=== PATIENT | male | born 1980 | race Caucasian/White ===

== ENCOUNTER 2019-12-16 03:48 | Emergency (ER) | payer OTHER ==
--- NOTE | 2019-12-16 03:55 | ED Physician Documentation ---
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 He denies any severe pain he denies abdominal pain denies nausea vomiting the patient reports that he is concerned that he could possibly have compartment syndrome because proximately 8 years ago he had an injury to his left calf area and he ended up with compartment syndrome and ultimately with a fasciotomy he denies severe pain but wants to be evaluated. He denies any testicular pain or dysuria or hematuria denies any history of hernias.The patient has follow-up today with medical at [facility] would be.) Review of Systems Constitutional: reports: Reviewed and negative Eyes: reports: Reviewed and negative Ears: reports: Reviewed and negative Nose: reports: Reviewed and negative Throat: reports: Reviewed and negative Cardiac: reports: Reviewed and negative Respiratory: reports: Reviewed and negative GI: reports: Reviewed and negative : reports: Reviewed and negative Skin: reports: Other (Paresthesias to left groin and left thigh) Musculoskeletal: reports: Reviewed and negative Neurologic: reports: Other (Paresthesias to left groin and left thigh) Psychiatric: reports: Reviewed and negative Endocrine: reports: Reviewed and negative Immunocompromised: reports: Reviewed and negative PD PAST MEDICAL HISTORY - Allergies Allergies/Adverse Reactions: Allergies Allergy/AdvReac Type Severity Reaction Status Date / Time sulfamethoxazole AdvReac Unknown Verified 12/16/19 04:03 [From ] trimethoprim [From ] AdvReac Unknown Verified 12/16/19 04:03 PD ED PE NORMAL - Vitals Vital signs reviewed: Yes - General General: Alert and oriented X 3, No acute distress, Well developed/nourished - HEENT HEENT: Atraumatic, PERRL, Moist mucous membranes, Pharynx benign - Neck Neck: Supple, no meningeal sign, No JVD - Cardiac Cardiac: RRR, No murmur, Strong equal pulses - Respiratory Respiratory: No respiratory distress, Clear bilaterally - Abdomen Abdomen: Normal bowel sounds, Soft, Non tender, Non distended, No organomegaly - Male Male : Other (No appreciable inguinal hernias on exam testicles are descended bilaterally penis is circumcised urethra is patent with no blood at the urethral meatus there is some decreased sensation in the left groin and abnormal sensation over the left proximal thigh.) - Rectal Rectal: Deferred - Back Back: No CVA TTP, No spinal TTP - Derm Derm: Normal color, Warm and dry, No rash - Extremities Extremities: No deformity, No tenderness to palpate, Normal ROM s pain, No edema, No calf tenderness / cord - Neuro Neuro: Alert and oriented X 3, acute care registered nurse 2-12 intact, No motor deficit, Normal speech, Other (Decreased sensation over the left groin region and left proximal lateral thigh.Strength is 5 out of 5 in bilateral upper and lower extremities he has a normal gait and can stand on his heels and his toes. Reflexes are 2+ and symmetric in bilateral patellar and Achilles.) - Psych Psych: Normal mood, Normal affect Results - Vitals Vitals: Vital Signs - 24 hr 12/16/19 12/16/19 12/16/19 03:57 04:10 04:22 Temperature 37.0 C Heart Rate 71 Respiratory 17 17 16 Rate Blood Pressure 151/96 H O2 Saturation 98 Oxygen O2 Source Room air - Labs Labs: Laboratory Tests 12/16/19 03:55 Urine Color YELLOW Urine Clarity CLEAR Urine pH 6.5 Ur Specific [place] 1.010 Urine Protein NEGATIVE Urine Glucose (UA) NEGATIVE Urine Ketones NEGATIVE Urine Occult Blood NEGATIVE Urine Nitrite NEGATIVE Urine Bilirubin NEGATIVE Urine Urobilinogen 0.2 (NORMAL) Ur Leukocyte Esterase NEGATIVE Ur Microscopic Review NOT INDICATED Urine Culture Comments NOT INDICATED PD MEDICAL DECISION MAKING - ED course Complexity details: considered differential (History and exam are consistent with meralgia paresthetica) Departure - Departure Disposition: 01 Home, Self Care Clinical Impression: Meralgia paresthetica of left side Condition: Stable Instructions: ED Paraesthesias Follow-Up: your, doctor [Other] - 12/16/19 Comments: take ibuprofen as needed. where loose fitting clothes. follow up with medical today. Discharge Date/Time: 12/16/19 04:33
[2019-12-16 04:02] VITALS: BP 151/96
[2019-12-16 04:13] LABS: BILIRUBIN,URINE NEGATIVE (NEGATIVE); CLARITY,URINE CLEAR (CLEAR); GLUCOSE, URINE (UA) NEGATIVE (NEGATIVE); KETONES,URINE (UA) NEGATIVE (NEGATIVE); LEUKOCYTE ESTERASE, URINE NEGATIVE (NEGATIVE); NITRITE,URINE NEGATIVE (NEGATIVE); OCCULT BLOOD,URINE NEGATIVE (NEGATIVE); PH,URINE 6.5 PH (5.0-7.5); PROTEIN,URINE NEGATIVE (NEGATIVE); UROBILINOGEN,URINE 0.2 (NORMAL) E.U./dL (NORMAL)
== END 2019-12-16 04:33 | disposition home or self-care (01) ==
LOC: ED 03:48
DX: G57.12 Meralgia paresthetica, left lower limb (principal)
CPT/HCPCS: 81001; 81003; 87086; 99283

== ENCOUNTER 2020-10-23 06:25 | Day surgery (SDC) | payer OTHER ==
[2020-10-23] MEDS ORDERED: LACTATED RINGERS 1,000 ML IV ONE ×2 (06:26→08:47)
[2020-10-23] MEDS ORDERED: ONDANSETRON 4 MG/2 ML VIAL ONE (07:03)
[2020-10-23] MEDS ORDERED: KETOROLAC 30 MG/ML VIAL ONE (07:03)
[2020-10-23] MEDS ORDERED: DEXAMETHASONE 4 MG/ML VIAL ONE (07:03)
[2020-10-23] MEDS ORDERED: ROPIVACAINE 0.5% PF 20 ML AMPULE ONE (07:03)
[2020-10-23] MEDS ORDERED: PROPOFOL 200 MG/20 ML VIAL IVP ONE (07:03)
[2020-10-23] MEDS ORDERED: LIDOCAINE-MPF 2% 5 ML VIAL ONE (07:03)
[2020-10-23] MEDS ORDERED: BUPIVACAINE 0.25% PF 10 ML VIAL ONE ×2 (07:21→07:26)
[2020-10-23] MEDS ORDERED: EPINEPHrine 1 MG/ML AMP ONE (07:21)
[2020-10-23] MEDS ORDERED: ceFAZolin 2 GM/50 ML 2 GM/50 ML BAG IV ONE (07:29)
[2020-10-23] MEDS ORDERED: fentaNYL 100 MCG/2 ML VIAL ONE (07:43)
[2020-10-23] MEDS ORDERED: MIDAZOLAM 2 MG/2 ML VIAL ONE (07:43)
[2020-10-23] MEDS ORDERED: fentaNYL 100 MCG/2 ML VIAL IVP PRN (07:56)
[2020-10-23] MEDS ORDERED: ePHEDrine 50 MG/ML VIAL IVP PRN (07:56)
[2020-10-23] MEDS ORDERED: METOCLOPRAMIDE 10 MG/2 ML VIAL IVP PRN (07:56)
[2020-10-23] MEDS ORDERED: ATROPINE ABBOJECT 1 MG/10 ML SYRINGE IVP PRN (07:56)
[2020-10-23] MEDS ORDERED: ONDANSETRON 4 MG/2 ML VIAL IVP PRN ×2 (07:56→08:44)
[2020-10-23] MEDS ORDERED: NALOXONE 0.4 MG/ML VIAL IVP PRN (07:56)
[2020-10-23] MEDS ORDERED: HYDROmorphone 0.5 MG/0.5 ML SYRINGE IVP PRN (07:56)
[2020-10-23] MEDS ORDERED: MORPHINE 2 MG/ML CARPUJECT IVP PRN (07:56)
--- NOTE | 2020-10-23 07:56 | ANESTHESIA ---
Pre-Anesthesia VS, & Labs - Diagnosis Left Knee Pain - Procedure Left Knee Diagnostic Scope Vital Signs: Temp Pulse Resp BP Pulse Ox 36 C L 66 12 142/99 H 99 10/23/20 06:27 10/23/20 06:27 10/23/20 06:27 10/23/20 06:27 10/23/20 06:27 Height: 6 ft 1 in Weight (kg): 113.4 kg Body Mass Index: 33.0 BMI Classification: Obese - NPO >8 hours Home Medications and Allergies Home Medications: Ambulatory Orders Levothyroxine Sodium [Synthroid] 200 mcg PO 10/18/20 Loratadine [Claritin] 10 mg PO DAILY 10/18/20 Montelukast [Singulair] 10 mg PO QPM 10/18/20 Naproxen [Naprosyn] 250 mg PO Q8H 10/18/20 Levothyroxine Sodium [Synthroid] 200 mcg PO 10/18/20 Loratadine [Claritin] 10 mg PO DAILY 10/18/20 Montelukast [Singulair] 10 mg PO QPM 10/18/20 Naproxen [Naprosyn] 250 mg PO Q8H 10/18/20 Allergies/Adverse Reactions: Allergies Allergy/AdvReac Type Severity Reaction Status Date / Time sulfamethoxazole AdvReac Unknown Verified 10/18/20 13:25 [From ] trimethoprim [From ] AdvReac Unknown Verified 10/18/20 13:25 Anes History & Medical History - Anesthetic History Anesthesia Complications: reports: No previous complications Family history of Anesthesia Complications: Denies Family history of Malignant Hyperthermia: Denies - Medical History Cardiovascular: reports: None Pulmonary: reports: Sleep apnea, CPAP use Gastrointestinal: reports: None Urinary: reports: None Neuro: reports: None Musculoskeletal: reports: Other Endocrine/Autoimmune: reports: HyPOthyroidism Blood Disorders: reports: None Skin: reports: None Smoking Status: Current every day smoker Psychosocial: denies: No issues indicated History of Cancer?: No - Surgical History Orthopedic: Arthroscopic surgery, Other Exam General: Alert Dental: WNL Mouth Openin Fingerbreadth Neck Mobility: Normal Mallampati classification: II Thyromental Distance: less than 4 cm Respiratory: Lungs clear, Normal breath sounds, No respiratory distress, No accessory muscle use Cardiovascular: Regular rate, Normal S1, Normal S2, No murmurs Mental/Cognitive Status: Alert/Oriented X3, Normal for patient Cognitive Status: Within normal limits Plan Anesthesia Type: General Consent for Procedure(s) Verified and Reviewed: Yes Code Status: Attempt Resuscitation ASA classification: 2-Mild systemic disease Is this case an emergency?: No
[2020-10-23] MEDS ORDERED: LACTATED RINGERS 1,000 ML IV SCH (08:00)
[2020-10-23] MEDS ORDERED: EPINEPHrine 1 MG/ML AMP IR ONE (08:04)
[2020-10-23] MEDS ORDERED: BUPIVACAINE 0.25% PF 10 ML VIAL SUBQ ONE ×2 (08:05)
[2020-10-23] MEDS ORDERED: oxyCODONE 5 MG TABLET PO PRN (08:44)
--- NOTE | 2020-10-23 08:55 | OPERATIVE REPORT ---
Operative Report - Other Other Information/Narrative: Date of Surgery: 23 October 2020 Pre-Op Diagnosis: Left knee chondrocalcinosis with cartilage lesions and meniscus tears Procedure: Left knee scope medial meniscus debridement, medial femoral condyle chondroplasty, medial tibial plateau chondroplasty, lateral tibial plateau chondroplasty, lateral meniscus debridement, trochlear chondroplasty Postop Diagnosis: Same as above Primary Surgeon: Alexis Avila Secondary Surgeon: None Complications: None Tourniquet Time: 32 minutes EBL: 5 cc Indication For Surgery: 40-year-old male with 18 months of left knee pain and imaging concerning for meniscus tears versus chondrocalcinosis. Conservative measures did not resolve his symptoms sufficiently. The risks, benefits, and alternatives were discussed. Risks include pain, bleeding, infection, damage to nearby structures and cartilage, lack of symptom relief, need for further surgery, DVT, PE, stroke, and . Written consent was obtained. Examination Under Anesthesia: ROM from 5 to 125 degrees. Stable dial at 30 & 90 degrees. Stable to varus and valgus stressing at 0 & 30 degrees. Stable Corine. Stable Pivot shift. No mechanical sensation Arthroscopic Findings: Loose bodies -small calcific loose bodies were appreciated throughout the knee and they were removed with a shaver Synovium -inflamed and excessive, this was debrided Patella cartilage -partial-thickness cartilage loss most prominent on the medial side and the proximal pole, edges were stable and debridement was not needed Trochlear cartilage -there is a large grade 2/3 lesion centrally with some loose edges which were debrided Medial femoral condyle cartilage -there is a linear area of calcific depositing that was excised and this was associated with a partial-thickness fissure Medial tibial plateau cartilage -there is diffuse grade 2 changes with calcium deposition which were debrided Medial meniscus -small bits of calcium deposition were seen superficially and there was a radial tear that measured 2 mm. The radial tear was debrided and the calcium was excised. The root was intact Anterior cruciate ligament -normal Posterior cruciate ligament -normal Lateral femoral condyle cartilage -normal Lateral tibial plateau cartilage -grade 2 changes throughout with softening and calcium deposition. The most calcium was deposited anteromedially adjacent to the spine and this was excised Lateral meniscus -there were small calcium deposition superficially throughout and significant calcium deposition at the root with partial tearing. A portion of the root that was unhealthy was debrided at the meniscus remained stable Procedure in Detail: The patient was met in the pre-operative hold area on the day of the procedure. The operative extremity was signed and questions were answered. The patient was brought to the operating room and a general anesthet ic was administered. Supine position was used and bony prominences were padded. An examination under anesthesia was performed. Standard prepping and draping was performed. A time out confirmed patient identification, laterality, procedure, allergies, antibiotics, and images. An Esmarch was used to exsanguinate the limb and the tourniquet was elevated to 250 mmHg. A standard diagnostic arthroscopy of the knee was performed through anterolateral and anteromedial portal sites. Prior incisions were used. The anteromedial portal was created under direct visualization after localizing with a spinal needle. The findings can be found above. I then proceeded to use a biter and shaver to debride back all unstable pieces of meniscus, cartilage, and calcium deposition. I also debrided hypertrophic synovium anteriorly for both visualization and to prevent fat pad impingement. Gillquist maneuver was used and I looked in the posterior lateral compartment and there were no findings. I was able to see the meniscus root by this maneuver and it was stable after the partial excision. Final images were taken and all arthroscopic fluid and instruments were removed from the knee. The incisions were closed with buried monocryl sutures. Steri strips were applied. 10 cc of 0.25% Marcaine without epinephrine was injected near the portal sites. A sterile dressing and Brett wrap were placed. The patient was awakened and transferred to recovery in stable condition.
[2020-10-23] MEDS ORDERED: METOCLOPRAMIDE 10 MG/2 ML VIAL ONE (09:05)
[2020-10-23 09:44] VITALS: BP 114/78
--- NOTE | 2020-10-23 09:47 | ANESTHESIA POST OP EVALUATION ---
Anesthesia Post Eval - Post Anesthesia Eval Vitals: Last Vital Signs Temp 36.3 C L 10/23/20 09:43 Pulse 65 10/23/20 09:43 Resp 14 10/23/20 09:43 BP 114/78 10/23/20 09:43 Pulse Ox 96 10/23/20 09:43 CV Function Including HR & BP: positive: Stable Pain Control: positive: Satisfactory Nausea & Vomiting: positive: Negative Mental Status: positive: Baseline Respiratory Status: Airway Patent Hydration Status: Satisfactory Anesthesia Complications: positive: None
== END 2020-10-23 06:26 | disposition home or self-care (01) ==
LOC: SDS 06:25
PROVIDERS: ATTEND Orthopaedic Surgery
PROC: 0SBD4ZZ Excision of Left Knee Joint, Percutaneous Endoscopic Approach (ICD-10-PCS; 2020-10-23)
PROC: 0SCD4ZZ Extirpation of Matter from Left Knee Joint, Percutaneous Endoscopic Approach (ICD-10-PCS; 2020-10-23)
PROC: 0SBD4ZZ Excision of Left Knee Joint, Percutaneous Endoscopic Approach (ICD-10-PCS; 2020-10-23)
PROC: 0SBD4ZZ Excision of Left Knee Joint, Percutaneous Endoscopic Approach (ICD-10-PCS; principal; 2020-10-23 07:30)
DX: M23.201 Derangement of unspecified lateral meniscus due to old tear or injury, left knee (principal); M23.204 Derangement of unspecified medial meniscus due to old tear or injury, left knee; M11.262 Other chondrocalcinosis, left knee; M23.42 Loose body in knee, left knee; M65.862 Other synovitis and tenosynovitis, left lower leg; M94.8X6 Other specified disorders of cartilage, lower leg; G47.30 Sleep apnea, unspecified; E03.9 Hypothyroidism, unspecified; F17.220 Nicotine dependence, chewing tobacco, uncomplicated; E66.9 Obesity, unspecified; Z68.33 Body mass index [BMI] 33.0-33.9, adult
CPT/HCPCS: 29880; J0690; J2765; J7120

== ENCOUNTER 2021-08-27 22:17 | Emergency (ER) | payer OTHER ==
--- NOTE | 2021-08-27 22:33 | ED Physician Documentation ---
PD HPI BACK PAIN - Stated complaint Stated Complaint: BACK PX - Chief complaint Chief Complaint: Back Pain - History obtained from History obtained from: Patient - History of Present Illness Timing - onset: Yesterday Timing - duration: Days (1) Timing - details: Abrupt onset, Still present, Waxing and waning Location: Mid, Left Quality: Pain, Spasm, Aching Associated symptoms: No: Fever, Weakness, Numbness, Hematuria Improves with: No: Rest (hurts even when lying still.) Worsened by: Movement Contributing factors: No: Lifting, Twisting, Trauma Similar symptoms before: Has not had sx before Recently seen: Not recently seen Review of Systems Constitutional: denies: Fever, Chills Nose: denies: Rhinorrhea / runny nose, Congestion Throat: denies: Sore throat Respiratory: denies: Cough GI: reports: Abdominal Pain (the back pain does seem to radiate to left lateral abdomen, per patient.), Nausea : denies: Dysuria, Hematuria Skin: denies: Rash, Lesions Musculoskeletal: reports: Back pain (just the current episode.). denies: Neck pain Neurologic: denies: Focal weakness, Numbness, Near syncope PD PAST MEDICAL HISTORY - Past Medical History Past Medical History: Yes Cardiovascular: None Respiratory: Sleep apnea, CPAP use Neuro: None Endocrine/Autoimmune: HyPOthyroidism GI: None : None HEENT: None Psych: None Musculoskeletal: Other Derm: None - Past Surgical History Past Surgical History: Yes Ortho: Arthroscopic surgery, Other - Present Medications Home Medications: Ambulatory Orders Medication Instructions Recorded Confirmed Levothyroxine Sodium [Synthroid] 200 mcg PO 10/18/20 Loratadine [Claritin] 10 mg PO DAILY 10/18/20 10/23/20 Montelukast [Singulair] 10 mg PO QPM 10/18/20 10/23/20 Naproxen [Naprosyn] 250 mg PO Q8H 10/18/20 10/23/20 HYDROcod/ACETAM 5/325 [Zebulon 5/325] 1 ea PO Q6H PRN #12 tablet 08/27/21 Ibuprofen [Motrin] 600 mg PO TID PRN #20 tab 08/27/21 methocarbamoL [Robaxin] 500 mg PO Q6H PRN #20 tablet 08/27/21 - Allergies Allergies/Adverse Reactions: Allergies Allergy/AdvReac Type Severity Reaction Status Date / Time sulfamethoxazole AdvReac Unknown Verified 08/27/21 22:28 [From ] trimethoprim [From ] AdvReac Unknown Verified 08/27/21 22:28 - Social History Does the pt smoke?: Yes Smoking Status: Current every day smoker Does the pt drink ETOH?: No Does the pt have substance abuse?: No - Family History Family history: denies: Aortic aneursym, Aortic dissection - Immunizations Immunizations are current?: Yes - POLST Patient has POLST: No PD ED PE NORMAL - Vitals Vital signs reviewed: Yes - General General: Alert and oriented X 3, Well developed/nourished, Other (appears in pain left flank/back. ) - Neck Neck: Supple, no meningeal sign, No adenopathy - Cardiac Cardiac: RRR, No murmur - Respiratory Respiratory: Clear bilaterally - Abdomen Abdomen: Normal bowel sounds, Soft, Non distended, No organomegaly, Other (no abd tenderness. Right flank with tenderness of muscle but also some percussive tenderness. ) - Male Male : Deferred - Rectal Rectal: Deferred - Back Back: No spinal TTP, Other (left CVA tender to percussion and palpation. ) - Derm Derm: Normal color, Warm and dry, No rash - Extremities Extremities: Normal ROM s pain, No edema, No calf tenderness / cord - Neuro Neuro: Alert and oriented X 3, No motor deficit, Normal speech Results - Vitals Vitals: Vital Signs - 24 hr 08/27/21 08/27/21 22:26 23:32 Temperature 35.8 C L Heart Rate 69 72 Respiratory 16 22 Rate Blood Pressure 159/104 H 168/97 H O2 Saturation 99 97 Oxygen O2 Source Room air - Labs Labs: Laboratory Tests 08/27/21 22:40 Urine Color YELLOW Urine Clarity CLEAR Urine pH 6.5 Ur Specific [place] 1.020 Urine Protein NEGATIVE Urine Glucose (UA) NEGATIVE Urine Ketones NEGATIVE Urine Occult Blood NEGATIVE Urine Nitrite NEGATIVE Urine Bilirubin NEGATIVE Urine Urobilinogen 0.2 (NORMAL) Ur Leukocyte Esterase NEGATIVE Ur Microscopic Review NOT INDICATED Urine Culture Comments NOT INDICATED - Rads (name of study) abd/pelvic CT Radiology: Prelim report reviewed (no acute process identified), See rad report PD MEDICAL DECISION MAKING - ED course Complexity details: re-evaluated patient (pain moderately less. He will be driving himself home so not given opiates here in ER. ), considered differential (seems possible kidney stone versus likely muscular. ), d/w patient Departure - Departure Disposition: 01 Home, Self Care Clinical Impression: Acute flank pain Condition: Stable Record reviewed to determine appropriate education?: Yes Instructions: ED Low Back Pain Injury Follow-Up: ADDY POLANCO MD [Primary Care Provider] - Prescriptions: Ibuprofen [Motrin] 600 mg PO TID PRN #20 tab PRN Reason: Pain HYDROcod/ACETAM 5/325 [Zebulon 5/325] 1 ea PO Q6H PRN #12 tablet PRN Reason: Pain methocarbamoL [Robaxin] 500 mg PO Q6H PRN #20 tablet PRN Reason: Spasms Comments: Your urine does not show any signs of infection. The CT scan does not show any kidney stones nor tumors or swelling. No signs of localized inflammation in the intestine (such as colitis or diverticulitis). No acute abnormality seen in general. Therefore I would assume you have a muscular back pain as this would not show up on those types of tests. This would get treated with later activity for a few days as well as heat stretching and massage or chiropractic. You can also do anti-inflammatories like ibuprofen 3 times a day with food for the next several days. Add Robaxin muscle relaxant if needed for stiffness or spasms. To that add Tylenol every 4-6 hours if needed for pain or oxycodone/hydrocodone pain pills if needed for worse pain. You were sent home with "mini" prescription of for pain tablets. [facility] you need further medication. Otherwise you may do fine with just ibuprofen and Tylenol over the next few days. I am prescribing a short course of narcotic pain medication for you. These are potentially dangerous and addictive medications that should be used carefully. These medications may constipate you. Take an [id number] stool softener such as docusate twice daily with plenty of water while taking these medications. If you go 24 hours without a bowel movement, take [id number] MiraLAX, per package instructions. Do not drink or drive while taking these medications. If you received narcotic or sedating medications while in the emergency department do not drive for 24 hours. Store this medication in a safe, secure place and out of reach of children. It is a violation of federal law to give or sell this medication to another person or to use in a manner other than prescribed. The ED will not refill narcotic prescriptions, including prescriptions lost or stolen. You can dispose of unwanted medications at the [facility] office or at several pharmacies such as [facility]. Forms: Activity restrictions Discharge Date/Time: 08/27/21 23:36
[2021-08-27] MEDS ORDERED: KETOROLAC 30 MG/ML VIAL IM STA (22:41)
[2021-08-27] MEDS ORDERED: oxyCODONE/ACET 5/325 Prepack 4 PO STA (22:42)
[2021-08-27] MEDS ORDERED: methocarbamoL 500 MG TABLET PO STA (22:42)
[2021-08-27 22:54] LABS: BILIRUBIN,URINE NEGATIVE (NEGATIVE); GLUCOSE, URINE (UA) NEGATIVE (NEGATIVE); KETONES,URINE (UA) NEGATIVE (NEGATIVE); LEUKOCYTE ESTERASE, URINE NEGATIVE (NEGATIVE); NITRITE,URINE NEGATIVE (NEGATIVE); OCCULT BLOOD,URINE NEGATIVE (NEGATIVE); PH,URINE 6.5 PH (5.0-7.5); PROTEIN,URINE NEGATIVE (NEGATIVE); UROBILINOGEN,URINE 0.2 (NORMAL) E.U./dL (NORMAL)
[2021-08-27 22:57] LABS: CLARITY,URINE CLEAR (CLEAR)
--- NOTE | 2021-08-27 23:15 | CT Report ---
PROCEDURE: Abdomen/Pelvis WO INDICATIONS: left flank to abd pain abrupt today TECHNIQUE: Noncontrast 5 mm thick sections acquired from the diaphragms to the symphysis. 5 mm coronal and sagi ttal reformats were then performed. For radiation dose reduction, the following was used: automated exposure control, adjustment of mA and/or kV according to patient size. COMPARISON: None. FINDINGS: Image quality: Excellent. ABDOMEN: Lung bases: Lung bases are clear. Heart size is normal. Solid organs: Liver and spleen are normal in size. Hepatic steatosis. Gallbladder is unremarkable. Pancreas is normal in contours. No adrenal nodules. Kidneys are normal in size and no hydronephrosi s. Punctate nonobstructing kidney stone in the right kidney, (7/51). Peritoneum and bowel: Unenhanced bowel loops demonstrate normal wall thickness and caliber. No free fluid or air. Nodes and vessels: No retroperitoneal or mesenteric adenopathy by size criteria. Aorta and inferior vena cava are normal in caliber. Miscellaneous: No ventral hernias. PELVIS: Genitourinary: Bladder is decompressed. No bladder stones. No free fluid in the pelvis. Miscellaneous: No inguinal hernias or adenopathy. Bones: No suspicious bony lesions. No vertebral body compression fractures. IMPRESSION: 1. No acute abnormality identified. No free fluid. No hydronephrosis. 2. Punctate nonobstructing right kidney stone. 3. Hepatic steatosis. Reviewed by: Leo Bobby MD on 08/27/2021 11:13 PM PST Approved by: Leo Bobby MD on 08/27/2021 11:13 PM PST Station ID: [id number]
[2021-08-27 23:33] VITALS: BP 168/97
== END 2021-08-27 23:36 | disposition home or self-care (01) ==
LOC: ED 22:17
DX: R10.9 Unspecified abdominal pain (principal); M54.2 Cervicalgia; F17.200 Nicotine dependence, unspecified, uncomplicated
CPT/HCPCS: 74176; 81003; 96372; 99284; A9270; 81001; 87086

== ENCOUNTER 2021-10-31 06:41 | Outpatient (CLI) | payer OTHER ==
--- NOTE | 2021-10-31 15:26 | MRI Report ---
PROCEDURE: Lumbar Spine W/O INDICATIONS: DORSALGIA TECHNIQUE: Noncontrast sagittal T1 spin echo and T2 fast echo, sagittal STIR, axial T1 and T2 fast spin echo thr ough the lumbar spine. In cases with scoliosis, additional coronal T2 fast spin echo may be performe d. COMPARISON: None. FINDINGS: Image quality: Excellent. Alignment and Curvature: There is normal bony alignment. Bone Marrow: Marrow is of normal overall signal. Minimal to mild reactive endplate changes are prese nt L4-5, L5-S1. Increased T1 and T2 signals present at the L1 vertebral body most suggestive of heman gioma. No acute vertebral body compression fractures. Spinal Cord: Conus medullaris terminates at the L1 level. Visualized cord demonstrates normal signa l and size. Paraspinous Soft Tissues: No paravertebral masses. Discs: Moderate desiccation is present throughout the lumbar spine L1-L2: Mild disc bulge without spinal stenosis without foraminal narrowing. L2-L3: Mild disc bulge without spinal stenosis or foraminal narrowing. L3-L4: Mild disc bulge with minimal canal narrowing. Minimal to mild bilateral foraminal narrowing is present. L4-L5: Mild disc bulge with superimposed left posterior central extrusion. There is moderate to sev ere spinal stenosis. There is significant compromise of the left lateral recess. There is significant proximal left foraminal narrowing. L5-S1: Mild disc bulge including right foraminal component. There is mild compromise of the right l ateral recess. There is a mild compromise of the left lateral recess secondary to inferior location o f the extruded disc from L4-5. There is moderate left foraminal narrowing in part secondary to infer ior location of extrusion from L4-5. Moderate right foraminal narrowing. IMPRESSION: 1. Disc bulge with prominent extrusion at L4-5 causing compromise of the left lateral recess and fora dion at L4-5 and to a lesser degree L5-S1. Reviewed by: Tameka Noguera MD on 10/31/2021 3:25 PM PST Approved by: Tameka Noguera MD on 10/31/2021 3:25 PM PST Station ID: [id number]
== END 2021-10-31 06:42 | disposition home or self-care (01) ==
LOC: DI 06:41
PROVIDERS: ATTEND Student in an Organized Health Care Education/Training Program
DX: M51.26 Other intervertebral disc displacement, lumbar region (principal); M51.36 Other intervertebral disc degeneration, lumbar region; M48.061 Spinal stenosis, lumbar region without neurogenic claudication; M51.37 Other intervertebral disc degeneration, lumbosacral region; M48.07 Spinal stenosis, lumbosacral region

== ENCOUNTER 2021-12-09 16:15 | Outpatient (CLI) | payer OTHER ==
--- NOTE | 2021-12-09 16:57 | XRAY Report ---
PROCEDURE: Foot 3 View LT INDICATIONS: LEFT FOOT PAIN TECHNIQUE: 3 views of the foot were acquired. COMPARISON: None FINDINGS: Bones: No fractures or dislocations. Mild osteoarthritic changes are noted throughout left foot more prominent in first MTP joint and first interphalangeal joint. Tiny plantar and dorsal calcaneal enth esophytes are seen. Dorsal marginal osteophyte formation at talonavicular joint is also noted. No mcmillan spicious bony lesions. Soft tissues: No tibiotalar joint effusion. Achilles tendon appears normal. 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 No fracture or dislocation. Tiny calcaneal enthesophyte s. Reviewed by: Spike Gonzalez MD on 12/09/2021 4:56 PM PDT Approved by: Spike Gonzalez MD on 12/09/2021 4:56 PM PDT Station ID: [id number]
== END 2021-12-09 16:16 | disposition home or self-care (01) ==
LOC: DI 16:15
PROVIDERS: ATTEND Podiatrist
DX: M19.072 Primary osteoarthritis, left ankle and foot (principal); M77.32 Calcaneal spur, left foot

== ENCOUNTER 2021-12-23 07:04 | Outpatient (CLI) | payer OTHER ==
--- NOTE | 2021-12-23 09:29 | MRI Report ---
PROCEDURE: Shoulder RT W/O INDICATIONS: PAIN IN SHOULDER TECHNIQUE: Noncontrast oblique coronal T2 fast spin echo with fat saturation, oblique sagittal T1 spin echo and T2 fast spin echo with fat saturation, axial T1 spin echo and T2 fast spin echo with fat saturation t hrough the shoulder. COMPARISON: None. FINDINGS: Image quality: Excellent. Rotator cuff: Mild to moderate supraspinatus and infraspinatus tendinosis. The teres minor tendon is intact. There is mild subscapularis tendinosis. Mild increased T2-weighted signal is seen within the teres minor muscle relative to the remaining rotator cuff muscles, most commonly secondary to early d enervation changes. No teres minor muscle atrophy or significant fatty infiltration. No mass is seen along the course of the axillary nerve. The deltoid muscle is normal in signal intensity and bulk. No significant atrophy of the remaining rotator cuff muscles. Bones and bursae: No acute trabecular bone injury. Small chronic traction cystic changes are seen in the posterosuperior humeral head near the rotator cuff tendon insertions. Mild partial thickness cart ilage irregularity is seen in the posterior clinoid. Moderate degenerative changes are seen in the ac romioclavicular joint with marginal osteophyte formation and mild subchondral cystic changes. A small amount of subacromial/subdeltoid bursal fluid is present. No significant glenohumeral effusion. Capsule and soft tissues: No displaced labral tear is seen. There is moderate biceps long head tendin osis. Effacement of the normal fat signal in the rotator interval is noted. The anterior band of the inferior glenohumeral ligament appears thickened. IMPRESSION: 1.Mild to moderate rotator cuff tendinosis involving the supraspinatus, infraspinatus, and subscapula ris tendons. 2.Subtle [id number] signal within the teres minor muscle may be secondary to early denervation changes. No mass is seen along the course of the axillary nerve. 3.Moderate biceps long head tendinosis. 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 5.Small subacromial/subdeltoid bursal effusion or bursitis. 6.Effacement of the rotator interval fat and thickening of the inferior glenohumeral ligament are non specific, but can be seen in the setting of the clinical syndrome of adhesive capsulitis. Reviewed by: Andi Olivia MD on 12/23/2021 9:28 AM PDT Approved by: Andi Olivia MD on 12/23/2021 9:28 AM PDT Station ID: [id number]
== END 2021-12-23 07:05 | disposition home or self-care (01) ==
LOC: DI 07:04
PROVIDERS: ATTEND Student in an Organized Health Care Education/Training Program
DX: M19.011 Primary osteoarthritis, right shoulder (principal); M75.91 Shoulder lesion, unspecified, right shoulder; M67.921 Unspecified disorder of synovium and tendon, right upper arm